=== PATIENT | female | born 1990 | race Caucasian/White ===

== ENCOUNTER 2018-06-15 16:43 | Emergency (ER) | payer OTHER ==
[~2018-06-15] VITALS: Ht 182.9 cm; Wt 109.0 kg
[2018-06-15 17:36] VITALS: BP 153/103
[2018-06-15] MEDS ORDERED: ACETAMINOPHEN 325MG TABLET PO ONE (20:15)
== END 2018-06-15 20:45 | disposition home or self-care (01) ==
LOC: ER 16:55
DX: M54.5 Low back pain (principal); M54.2 Cervicalgia; Z90.49 Acquired absence of other specified parts of digestive tract; V49.88XA Car occupant (driver) (passenger) injured in other specified transport accidents, initial encounter; Y93.89 Activity, other specified; Y92.89 Other specified places as the place of occurrence of the external cause; Y99.8 Other external cause status
CPT/HCPCS: 81025; 99282